=== PATIENT | female | born 1950 | race Caucasian/White ===

== ENCOUNTER → 2018-04-28 | Outpatient (CLI) | payer MEDICARE, OTHER ==
[~2018-04-28] MED LIST: ALLEGRA ALLERG180 MG PO; CALCIUM 600 +1 EAC1 PO; CELEXA10 MG PO; CHOLEST OFF450 MG PO; DETROL2 M1 PO; ESTER-C 500 MG1 EACH PO; FLONASE 0.05%50 MCG NASAL; LASIX 40 MG TAB40 M2 PO; LISINOPRIL5 MG PO; LOSARTAN-HCTZ1 EAC1 PO; POTASSIUM20 PO; PRILOSEC 20 MG20 MG PO; SORINE 80 MG TA80 M1 PO; SYMBICORT160 MCG/4. INH; VENTOLIN HFA 1818 GM INH; XANAX 0.5 MG0.5 MG PO; XARELTO20 MG PO; ZOCOR20 MG PO
== END ==
LOC: M.RAD 14:47
DX: I51.7 Cardiomegaly (principal); R06.09 Other forms of dyspnea; R05 Cough; J45.909 Unspecified asthma, uncomplicated; K21.9 Gastro-esophageal reflux disease without esophagitis

== ENCOUNTER → 2019-01-09 | Outpatient (CLI) | payer MEDICARE, OTHER ==
--- NOTE | 2019-01-12 09:57 | PF ---
[address] [address] PULMONARY FUNCTION REPORT Name: MARY KAY FORREST Room: [facility]#: [id number] Admission: 01/09/19 Attend Phys: KAREN Ramirez Discharge: Date of : 50 Report #: [id number] THIS REPORT FOR: //name// CC: Malcolm Sutton REFERRING PHYSICIANS: KAREN Bunch/Malcolm Valentine MD TYPE OF STUDY: Pulmonary function test. SPIROMETRY: The FEV1/FVC ratio was 54% predicted. The FEV1 post-bronchodilators was 1.1 liter at 53% predicted. The forced vital capacity post-bronchodilator 1.95 liters at 70% of predicted. LUNG VOLUMES: The total lung capacity was 76% predicted. DLCO was low at 43% predicted. IMPRESSION: This pulmonary function test demonstrates xrvnvgnr-xp-wkeurd obstructive pulmonary defect with low DLCO. No positive bronchodilator response. <ELECTRONICALLY SIGNED> By: Ab Hill MD 01/12/19 0957 1140 2112Ddedra Hill MD /nt
== END ==
LOC: M.PUL 09:30
DX: J45.41 Moderate persistent asthma with (acute) exacerbation (principal)

== ENCOUNTER → 2019-07-26 | Outpatient (CLI) | payer MEDICARE, OTHER ==
--- NOTE | 2019-08-01 22:51 | SLEEP ---
[address] [address] SLEEP STUDY REPORT Name: MARY KAY FORREST Room: [facility]#: [id number] Admission: 07/26/19 Attend Phys: Lesley Mendoza RN Discharge: Date of : 50 Report #: [id number] THIS REPORT FOR: //name// CC: Malcolm eMndoza This study has been reviewed in its entirety by a board certified sleep specialist DATE OF SERVICE: 07/27/2019 REFERRING PHYSICIAN: CHASIDY Adrian The patient is a 69-year-old who weighs 232 pounds with a BMI of 51.8. The patient's Geary score was 5. The patient underwent home sleep study performed at [facility]. Total recording time was 646 minutes. During the night study, the patient had 8 obstructive apneas, no mixed or central apneas and 114 hypopneas. The patient's AHI for the entire night was 11.8 per hour with a supine AHI of 11.8 per hour as well. Nocturnal oximetry study revealed an average oxygen saturation of 88% with the lowest of 72%. 525 minutes were spent in oxygen saturation of less than 90% and another 78 minutes with saturation of less than 85% and 22 minutes with saturation of less than 80%. Mean heart rate 48 beats per minute with a maximum of 66 beats per minute. IMPRESSION: 1. Mild sleep apnea-hypopnea syndrome at an AHI of 11.8 per hour. 2. Nocturnal hypoxia, moderate to severe. This is secondary to combination of obstructive sleep apnea and suspected hypoventilation. RECOMMENDATIONS: 1. The patient has mild sleep apnea. If the patient is clinically symptomatic or has comorbid conditions, then consider treatment of sleep apnea with CPAP versus oral appliance. 2. Weight loss is strongly advised. 3. Avoid TOBACCO PREVENTION HEALTH EDUCATOR depressants. 4. Cautioned regarding driving until the patient's symptoms of sleep apnea resolve with the above recommendations. <ELECTRONICALLY SIGNED> By: Jack Roberts MD 08/01/19 2251 1438 2056Aman Desmond Roberts MD /nt
== END ==
LOC: M.SLEEPLAB 12:57
DX: G47.30 Sleep apnea, unspecified (principal); G47.33 Obstructive sleep apnea (adult) (pediatric); R09.02 Hypoxemia

== ENCOUNTER → 2019-09-21 | Day surgery (SDC) | payer MEDICARE, OTHER ==
[~2019-09-21] MED LIST changes: +ASPIR-TRIN325 MG PO; +BETAMETHASONE D50 G2 TOP; +BROVANA15 MCG/2 M INH; +DORZOLAMIDE 2%10 ML OPHTHALMIC; +DOXYCYCLINE 10100 MG PO; +IPRAT-ALBUT 0.5-3 ML INH; +MUPIROCIN22 GM; +OXYBUTYNIN 5 MG5 M2 PO; +PROBIOTIC1 EAC7 PO; +PULMICORT0.5 MG/21 INH; +VITAMIN C1000 MG PO; +XALATAN2.5 ML OPHTHALMIC; +ZYRTEC10 MG PO
--- NOTE | ~2019-09-21 | PROC ---
[address] [address] PROCEDURE REPORT Name: MARY AKY FORREST Room: [facility].R.#: [id number] Admission: 09/21/19 Attend Phys: Candelaria Wilder MD Discharge: Date of : 50 Report #: [id number] THIS REPORT FOR: //name// cc: Malcolm Valentine MD, Bruce D. MD ~ THIS REPORT FOR: //name// For GI report, please see the Provation report in Perceptive 7 content. By: [facility]6Medical Records Staff WILL /MARGARITA
--- NOTE | 2019-09-21 11:42 | EKG ---
[place] [address] ELECTROCARDIOGRAM REPORT Name: MARY KAY FORREST Room: [facility]#: [id number] Admission: 09/21/19 Attend Phys: Candelaria Wilder MD Discharge: Date of : 50 Date of Service: 09/21/1910 Report #: [id number] THIS REPORT FOR: //name// [facility] Test Date: 2019-09-21 Test Time: 09:10:26 Pat Name: MARY KAY FORREST Department: Room: Gender: F Manager Quality Systems: : 1950 Requested By: Candelaria Wilder Order Number: [id number] Reading MD: Adarsh Conley Measurements Intervals [place] Rate: 56 P: 78 MN: 172 QRS: 74 QRSD: 110 T: 76 QT: 549 QTc: 530 Interpretive Statements Sinus rhythm Low voltage with right axis deviation Nonspecific T abnormalities, anterior leads Prolonged QT interval Compared to ECG 02/20/2016 07:54:45 T-wave abnormality now present Prolonged QT interval now present Poor R-wave progression no longer present Electronically Signed On 09-21-2019 11:41:51 INFORMATION TECHNOLOGY COORDINATOR by Adarsh Conley [email or web address] <ELECTRONICALLY SIGNED> By: Adarsh Conley MD, FAC 09/21/19 1141 0910 0910 Adarsh Conley MD, FAC /EPI
--- NOTE | 2019-09-24 15:08 | PATH ---
[facility] [address] [place] [address] PATHOLOGY RPT PROCEDURE Name: MARY KAY LONDON Room: [facility].R.#: [id number] Admission: 09/21/19 Date of : 50 Discharge: Report #: [id number] Path Case #: [id number] [facility] Accession Number: [id number] . 01 Material submitted: . PART A: colon - ASCENDING COLON. Modifiers: ascending PART B: colon - TRANSVERSE COLON POLYP. Modifiers: transverse PART C: colon - SIGMOID COLON POLYP. Modifiers: sigmoid . 01 Clinical history: . History of polyps, nausea. . 02 Diagnosis: A. Ascending colon polyp: - Suggestive of serrated adenoma, negative for high-grade dysplasia. . B. Transverse colon polyp: - Tubular adenoma, negative for high-grade dysplasia. . C. Sigmoid colon polyp: - Hyperplastic polyp. . (ARIELLE:jose; 09/24/2019) [facility] 09/24/2019 1147 Local . 02 Electronically signed: . Rajat Swann MD, Pathologist NPI- [id number] . 01 Gross description: . A. Received in formalin labeled "Mary Kay London, ascending colon polyp" is a 0.5 x 0.3 x 0.1 cm fragment of wheatley-brown soft tissue. The specimen is submitted entirely in A1. . B. Received in formalin labeled "Mary Kay London, transverse colon polyp" is a 0.8 x 0.3 x 0.1 cm fragment of wheatley-brown soft tissue. The specimen is submitted entirely in B1. . C. Received in formalin labeled "Mary Kay London, sigmoid colon polyp" is a 0.4 x 0.3 x 0.1 cm fragment of wheatley-brown soft tissue. The specimen is submitted entirely in C1. ([facility]; 09/23/2019) [facility] 09/23/2019 0926 Local . 02 Pathologist provided ICD-10: D12.3, K62.1 . 02 CPT . 575122, 566511, 593761 [place] [address] PATHOLOGY RPT PROCEDURE Name: MARY KAY LONDON [place] Room: [facility].#: [id number] Admission: 09/21/19 Date of : 50 Discharge: Report #: [id number] Path Case #: [id number] Specimen Comment: A courtesy copy of this report has been sent to [phone] Specimen Comment: Report sent to DR KEITH Performed at: [address], [place], [place] [address] MD Robert Neri MD Phone: [phone] Performed at: 02 [facility] [address], [place], [place] [address] MD Rajat Swann MD Phone: [phone]
== END | disposition home or self-care (01) ==
LOC: M.SUR 08:33
DX: Z12.11 Encounter for screening for malignant neoplasm of colon (principal); Z86.010 Personal history of colon polyps; D12.2 Benign neoplasm of ascending colon; D12.3 Benign neoplasm of transverse colon; K64.8 Other hemorrhoids; K57.30 Diverticulosis of large intestine without perforation or abscess without bleeding; K22.2 Esophageal obstruction; K44.9 Diaphragmatic hernia without obstruction or gangrene; K21.9 Gastro-esophageal reflux disease without esophagitis; I10 Essential (primary) hypertension; I25.10 Atherosclerotic heart disease of native coronary artery without angina pectoris; H40.9 Unspecified glaucoma; J44.9 Chronic obstructive pulmonary disease, unspecified; G47.30 Sleep apnea, unspecified; I48.91 Unspecified atrial fibrillation; Z98.890 Other specified postprocedural states; Z79.899 Other long term (current) drug therapy; Z90.710 Acquired absence of both cervix and uterus

== ENCOUNTER → 2020-07-07 | Outpatient (CLI) | payer OTHER | LOC: M.CT 14:15 | PROVIDERS: ATTEND Internal Medicine Cardiovascular Disease | DX: Z13.6 Encounter for screening for cardiovascular disorders (principal); J98.59 Other diseases of mediastinum, not elsewhere classified ==

== ENCOUNTER 2021-01-05 10:14 | Emergency (ER) | payer MEDICARE, OTHER ==
[~2021-01-05] VITALS: Ht 157.5 cm; Wt 111.6 kg
[2021-01-05] MEDS ORDERED: ELIQUIS5 MG PO (10:44)
[2021-01-05] MEDS ORDERED: ZYRTEC10 M5 PO (10:44)
[2021-01-05] MEDS ORDERED: SINGULAIR 10 MG10 M1 PO (10:45)
[2021-01-05] MEDS ORDERED: FISH OIL 1,001000 M3 PO (10:45)
[2021-01-05] MEDS ORDERED: DILTIAZEM ER180 M2 PO (10:45)
[2021-01-05] MEDS ORDERED: COMPAZINE5 M1 PO (10:46)
[2021-01-05 11:09] LABS: BE -0.6 mmol/L (-2 to +3); PCO2 36.2 mmHg (35.0-45.0); PO2 101.1 mmHg (75.0-100.0); pH 7.428 (7.340-7.450)
[2021-01-05 11:23] LABS: ABSOLUTE LYMPHOCYTES 0.7 thou/uL (0.8-5.3); ABSOLUTE MONOCYTES 0.3 thou/uL (0.0-1.2); ABSOLUTE NEUTROPHILS 1.6 thou/uL (1.6-8.1); BASOPHILS 0.5 %; EOSINOPHILS 0.1 %; HEMATOCRIT 35.4 % (37.0-47.0); HEMOGLOBIN 12.2 gm/dL (12.0-15.0); LYMPHOCYTES 26.2 %; MCH 32.4 pg (26.0-34.0); MCHC 34.4 g/dL (28.0-37.0); MCV 93.9 fL (80.0-100.0); MONOCYTES 12.1 %; MPV 6.9 fl. (7.2-11.1); NUCLEATED RBCS 0 /100WBC; PLATELET COUNT* 322 thou/uL (150-400); POLYS 61.1 %; RBC 3.77 mil/uL (4.20-5.00); RDW-CV 18.9 % (10.5-14.5); WBC 2.7 thou/uL (4.0-11.0)
[2021-01-05 11:29] LABS: CALCIUM 8.7 mg/dL (8.5-10.1); POTASSIUM 3.5 mmol/L (3.5-5.1)
[2021-01-05 11:40] LABS: ALBUMIN 2.5 g/dL (3.4-5.0); TOTAL BILIRUBIN 0.1 mg/dL (<0.1-1.0); TOTAL PROTEIN 7.2 g/dL (6.4-8.2)
[2021-01-05] MEDS ORDERED: VENTOLIN HFA 1818 GM INH (13:59)
[2021-01-05 14:15] VITALS: BP 141/86
--- NOTE | 2021-01-05 15:40 | EKG ---
[place] [address] ELECTROCARDIOGRAM REPORT Name: FORRESTMARY KAY Room: [facility]#: [id number] Admission: 01/05/21 Attend Phys: Discharge: 01/05/21 Date of : 50 Date of Service: 01/05/21 1031 Report #: [id number] THIS REPORT FOR: //name// [facility] ED Test Date: 2021-01-05 Test Time: 10:31:14 Pat Name: MARY KAY FORREST Department: Room: Gender: F Dial Polisher: MILAN : 1950 Requested By: Criselda Hudson Order Number: [id number] MD: Adarsh Conley Measurements Intervals [place] Rate: 88 P: SC: QRS: 90 QRSD: 106 T: 61 QT: 400 QTc: 484 Interpretive Statements Atrial fibrillation Low voltage, precordial leads Minimal ST depression, lateral leads Borderline prolonged QT interval Compared to ECG 09/21/2019 09:10:26 Sinus rhythm no longer present Right-axis deviation no longer present T-wave abnormality no longer present Electronically Signed On 01-05-2021 15:40:20 CDT by Adarsh Conley [email or web address] <ELECTRONICALLY SIGNED> By: Adarsh Conley MD, [facility] 01/05/21 1540 1031 1031 Adarsh Conley MD, [facility] /EPI
== END 2021-01-05 14:15 | disposition home or self-care (01) ==
LOC: M.ERS 10:14
PROVIDERS: Nurse Practitioner Family
DX: U07.1 COVID-19 (principal); J96.11 Chronic respiratory failure with hypoxia; J45.909 Unspecified asthma, uncomplicated; I48.91 Unspecified atrial fibrillation; I10 Essential (primary) hypertension; K21.9 Gastro-esophageal reflux disease without esophagitis; Z79.82 Long term (current) use of aspirin; Z79.899 Other long term (current) drug therapy; Z90.710 Acquired absence of both cervix and uterus; Z85.118 Personal history of other malignant neoplasm of bronchus and lung